=== PATIENT | male | born 1985 | race Caucasian/White ===

== ENCOUNTER 2025-04-01 07:14 | Emergency (ER) | payer SELFPAY ==
[2025-04-01] MEDS ORDERED: Ondansetron PF 4 MG/2 ML Vial ONE (07:32)
[2025-04-01] MEDS ORDERED: Dicyclomine 20 MG TAB ONE (07:32)
[2025-04-01] MEDS ORDERED: Famotidine/PF 20 mg/2ml Vial ONE (07:33)
[2025-04-01] MEDS ORDERED: Metoclopramide HCl 10 MG (2 mL) VIAL ONE (07:33)
[2025-04-01 07:46] LABS: #Basophils Less than 0.03 10x3/uL (0.0-0.2); #Eosinophils 0.16 10x3/uL (0.0-0.7); #Monocytes 0.70 10x3/uL (0.11-0.59); #Neutrophils 9.56 10x3/uL (1.40-6.50); %Basophils 0.2 % (0.0-1.0); %Eosinophils 1.3 % (0.0-10.0); %Lymphocytes 15.3 % (21.0-51.0); %Monocytes 5.7 % (0.0-10.0); %Neutrophils 77.2 % (42.0-75.0); Hematocrit 51.8 % (42.0-52.0); Hemoglobin 17.6 g/dL (14.0-18.0); Mean Corpuscular Hemoglobin 30.8 pg (27.0-31.0); Mean Corpuscular Volume 90.7 fL (78.0-98.0); Platelet Count 308 10x3/uL (130-400); Red Blood Cell (RBC) Count 5.71 mill/uL (4.70-6.10); White Blood Cell (WBC) Count 12.37 10x3/uL (4.8-10.8)
[2025-04-01 08:01] LABS: ALT (SGPT) 43 U/L (Less than 45); AST (SGOT) 26 U/L (11-34); Albumin 5.0 g/dL (3.1-4.5); Alkaline Phosphatase 97 U/L (40-110); Anion Gap 16 mmol/L (10-20); BUN (Urea Nitrogen) 17 mg/dL (8.9-20.6); Bilirubin, Total 1.0 mg/dL (0.3-1.2); Calc. Creatinine Clearance 0 mL/min (70-130); Calcium 10.1 mg/dL (7.8-10.44); Carbon Dioxide 26 mmol/L (22-29); Chloride 100 mmol/L (98-107); Globulin 3.5 g/dL (2.4-3.5); Glucose 141 mg/dL (70-105); Lipase 25 U/L (8-78); Magnesium 2.0 mg/dL (1.6-2.6); Potassium 3.8 mmol/L (3.5-5.1); Sodium 138 mmol/L (136-145)
[2025-04-01 12:56] LABS: Campy jejuni + coli by PCR Negative (Negative); STEC Shiga Toxin 1+2 POSITIVE (Negative); Salmonella spp. by PCR Negative (Negative); Shigella spp + EIEC by PCR Negative (Negative)
== END 2025-04-01 09:55 | disposition home or self-care (01) ==
LOC: ERS 07:14
DX: E86.0 Dehydration (principal); N17.9 Acute kidney failure, unspecified; R11.2 Nausea with vomiting, unspecified; R19.7 Diarrhea, unspecified
CPT/HCPCS: 80053; 83690; 83735; 85025; 87505; 93005; 96361; 96374; 96375; J1308; J2405; J2765